=== PATIENT | male | born 2000 | race Caucasian/White ===

== ENCOUNTER 2018-08-23 02:15 | Emergency (ER) | payer SELFPAY ==
[~2018-08-23] VITALS: Ht 162.6 cm; Wt 61.2 kg
[2018-08-23 02:21] VITALS: BP 113/64
[2018-08-23] MEDS ORDERED: IV NS 0.9% 1,000 ML BAG IV ONE (02:30)
== END 2018-08-23 03:19 | disposition home or self-care (01) ==
LOC: ER 02:17
DX: R07.89 Other chest pain (principal)
CPT/HCPCS: 71045-TC; A4606; Z7610